=== PATIENT | male | born 1950 | race African-American/Black ===

== ENCOUNTER 2025-03-10 11:28 | Emergency (ER) | payer MEDICARE, MEDICAID ==
[~2025-03-10] VITALS: Ht 193 cm; Wt 88.4 kg
[~2025-03-10 11:28] MED LIST: APIX5TAB PO; ATOR40TA70 PO; CARV3.1242 PO; CHOL10CA2 PO; POTA8CAP20 PO
[2025-03-10 11:37] VITALS: O2SAT 99
[2025-03-10 11:41] VITALS: BP 140/86; PULSE 70; RESP 16; TEMP 36.6; O2SAT 98
[2025-03-10] MEDS ORDERED: KETOROLAC 30MG/ML VIAL IM STA (14:14)
== END 2025-03-10 15:01 | disposition home or self-care (01) ==
LOC: ER 13:27
DX: S46.912A Strain of unspecified muscle, fascia and tendon at shoulder and upper arm level, left arm, initial encounter (principal); I11.0 Hypertensive heart disease with heart failure; I50.9 Heart failure, unspecified; Z79.899 Other long term (current) drug therapy; Z79.01 Long term (current) use of anticoagulants; X58.XXXA Exposure to other specified factors, initial encounter; Y93.89 Activity, other specified; Y92.89 Other specified places as the place of occurrence of the external cause; Y99.8 Other external cause status
CPT/HCPCS: 99281; J1885